=== PATIENT | male | born 1960 | race Hispanic/Latino ===

== ENCOUNTER 2017-11-17 19:52 | Emergency (ER) | payer BC ==
[2017-11-17 20:12] VITALS: O2SAT 99
[2017-11-17 20:32] LABS: URINE BILIRUBIN NEGATIVE (NEGATIVE); URINE BLOOD 1+ (NEGATIVE); URINE CLARITY Clear (Clear); URINE COLOR Straw (YELLOW); URINE GLUCOSE (UA) NORMAL (Normal); URINE LEUKOCYTE ESTERASE NEG Leu/uL (Negative); URINE PROTEIN NEGATIVE (NEGATIVE); URINE UROBILINOGEN NORMAL mg/dL (0.2-1.0)
--- NOTE | 2017-11-17 21:17 | C.PDOC ---
History Of Present Illness 57 y/o M p/w abdominal pain, back pain, and R ear foreign body. Patient states he is from [place], just arrived here. States has had abdominal pain for 2 months, began after eating eggs, went to an ED, had CT which showed intestinal inflammation and finished course of antibiotics, made appointment for follow up colonoscopy but will not be keeping it because [place] in [place]. He also complains of upper thoracic back pain from lifting a heavy object, states he has thrown his back out before but has not taken any medications because he is concerned about his "stomach" due to the last 2 months. He also states he was cleaning his ear with a Q tip and the cotton fell off and is stuck in his ear. Denies fever, chills, chest pain, dyspnea, dysuria. Time Seen by Provider: 11/17/17 21:10 Chief Complaint (Nursing): Abdominal Pain Past Medical History Vital Signs: Last Vital Signs Temp 98.2 F 11/17/17 20:07 Pulse 59 L 11/17/17 20:07 Resp 20 11/17/17 20:07 BP 127/76 11/17/17 20:07 Pulse Ox 99 11/17/17 21:34 Family History: States: No Known Family Hx - Social History Hx Alcohol Use: No Hx Substance Use: No Review Of Systems Except As Marked, All Systems Reviewed And Found Negative. Constitutional: Negative for: Fever Cardiovascular: Negative for: Chest Pain Physical Exam - Physical Exam Additional Physical Exam Comments: Constitutional: No acute distress. Head: Normocephalic. Atraumatic. Eyes: PERRL. ENT: Moist mucous membranes. Cotton in R ear canal. Neck: Supple. Cardiovascular: Regular rate. Radial pulse 2+ bilaterally. Chest: No tenderness. Respiratory: Clear to auscultation bilaterally. GI: Soft. No guarding or rebound. Nondistended. Back: No CVA tenderness. No midline tenderness. Musculoskeletal: No tenderness or swelling of extremities. Skin: No rash. Neurologic: Alert, no focal deficit. ED Course And Treatment O2 Sat by Pulse Oximetry: 99 Medical Decision Making Medical Decision Making: Instructed to make new appointment for colonoscopy. Take NSAIDs with Pepcid for back pain. Alligator forceps used to remove cotton, no underlying erythema or edema or discharge. Disposition - Disposition Referrals: Yomi Garibay MD [Staff Provider] - Disposition: HOME/ ROUTINE Disposition Time: 21:37 Condition: STABLE Prescriptions: Famotidine [Pepcid] 1 tab PO BID #14 tab Ibuprofen [Motrin] 1 tab PO Q6 #30 tab Instructions: Removing Objects Stuck in the Ear, Upper Back Pain, Inflammatory Bowel Disease Forms: [employer] (Swedish) - Clinical Impression Clinical Impression: Abdominal pain, Back pain, Foreign body in ear
[2017-11-17 22:05] VITALS: BP 129/77; PULSE 73; RESP 14; TEMP 97.4
== END 2017-11-17 22:05 | disposition home or self-care (01) ==
LOC: C.ER 19:52
DX: T16.1XXA Foreign body in right ear, initial encounter (principal); X58.XXXA Exposure to other specified factors, initial encounter; Y93.E8 Activity, other personal hygiene; R10.9 Unspecified abdominal pain; M54.6 Pain in thoracic spine